=== PATIENT | female | born 1945 | race Caucasian/White ===

== ENCOUNTER 2023-07-12 06:20 | Inpatient (IN) | payer OTHER ==
[2023-07-12] VITALS (13 sets, daily range): BP systolic 112–137; BP diastolic 53–64; PULSE 56–93; RESP 12–18; TEMP 96.8–98.5; O2SAT 94–100
[~2023-07-12] VITALS: Ht 154.9 cm; Wt 112.0 kg
[~2023-07-12 06:20] MED LIST: AMLO1TAB23 PO; ASPI81CH59 PO; CHOLTAB12 PO; COEN100C37 PO; EZET10TA22 PO; FLUT1AER3 IN; FURO20TA3 PO; HYDR25TA5 PO; IPRA0.00 IN; ISOS1TAB28 PO; PRAV20TA3 PO; SERT-160 PO
[2023-07-12] MEDS ORDERED: ROCURONIUM 10MG/ML 10ML VIAL IV ONE (06:50)
[2023-07-12] MEDS ORDERED: SUCCINYLCHOLINE CHLORIDE 20 MG/ML 10ML VIAL IV ONE (06:50)
[2023-07-12] MEDS ORDERED: MIDAZOLAM HCL 2MG/2ML 2ml VIAL (1mg/ml) ONE (06:57)
[2023-07-12] MEDS ORDERED: fentaNYL CITRATE 100 MCG/2 ML VL ONE (06:57)
[2023-07-12] MEDS ORDERED: MEPERIDINE HCL (50 MG/ML) 1 ML VIAL ONE (06:57)
[2023-07-12] MEDS ORDERED: ONDANSETRON HCL 4 MG/2 ML VIAL ONE (06:58)
[2023-07-12] MEDS ORDERED: SODIUM CHLORIDE LOCK 20 ML ONE (06:58)
[2023-07-12] MEDS ORDERED: PROPOFOL 10 MG/ML 20 ML IV ONE ×3 (06:58→10:47)
[2023-07-12] MEDS ORDERED: NEOSTIGMINE 1 MG/ML INJ (10mg/10ML VIAL) ONE (06:58)
[2023-07-12] MEDS ORDERED: DexAMETHasone SOD PHOS 10MG/1ML VIAL INJ ONE (06:58)
[2023-07-12] MEDS ORDERED: GLYCOPYRROLATE 0.2 MG/ML 1ML VIAL ONE (06:58)
[2023-07-12] MEDS ORDERED: ceFAZolin 1GM/50ML 100 ML IV ONE (07:10)
[2023-07-12] MEDS ORDERED: LIDOCAINE W/ EPINEPHRINE 1% 20ML VIAL ONE (07:17)
[2023-07-12] MEDS ORDERED: METOCLOPRAMIDE HCL 5MG/ml INJ 2ml VIAL IV PRN (07:30)
[2023-07-12] MEDS ORDERED: MORPHINE SULFATE INJ 2 MG/ml SYRG IV PRN ×3 (07:30→08:00)
[2023-07-12] MEDS ORDERED: HYDROmorphone HCL 2 MG/ML VL/or syr IV PRN ×3 (07:30→13:15)
[2023-07-12] MEDS ORDERED: TRANEXAMIC ACID 20 ML ONE (07:45)
[2023-07-12] MEDS ORDERED: D5W/SOD CHLO 0.9% 1,000 ML IV SCH (08:00)
[2023-07-12] MEDS ORDERED: ACETAMINOPHEN 325 MG TAB PO PRN (08:00)
[2023-07-12] MEDS ORDERED: ONDANSETRON HCL 4 MG/2 ML VIAL IV PRN (08:00)
[2023-07-12] MEDS: ceFAZolin 1GM/50ML 50 ML IV SCH ×2 (08:00→16:00)
[2023-07-12] MEDS ORDERED: NITROGLYCERIN 0.4 MG SL TAB SL PRN (08:00)
[2023-07-12] MEDS ORDERED: SODIUM CHLORIDE LOCK 40 ML ONE (08:17)
[2023-07-12] MEDS: DOCUSATE SOD 100 MG CAP PO SCH ×2 (10:00→21:13)
[2023-07-12] MEDS ORDERED: ALBUTEROL SULF 2.5 MG/0.5ML(0.5%) NEB SOLN NEB ONE (13:15)
[2023-07-12] MEDS ORDERED: IPRATROPIUM BROM 0.5 MG/2.5ML INH SOL NEB ONE (13:15)
[2023-07-12] MEDS: HYDROmorphone HCL 2 MG/ML VL/or syr IV PRN ×4 (13:15→13:45)
[2023-07-12] MEDS ORDERED: CYCLOBENZAPRINE HCL 10 MG TAB PO SCH (14:00)
[2023-07-12] MEDS: D5W/SOD CHLO 0.9% 1,000 ML IV SCH (17:54)
[2023-07-12] MEDS: ALBUTEROL SULF 2.5 MG/0.5ML(0.5%) NEB SOLN NEB SCH (18:10)
[2023-07-12] MEDS: IPRATROPIUM BROM 0.5 MG/2.5ML INH SOL NEB SCH (18:10)
[2023-07-12] MEDS: CYCLOBENZAPRINE HCL 10 MG TAB PO SCH (21:13)
[2023-07-13] VITALS (12 sets, daily range): BP systolic 102–111; BP diastolic 31–53; PULSE 61–85; RESP 16–19; TEMP 98.1–98.8; O2SAT 96–100
[2023-07-13] MEDS: HYDROcodone-ACET 10/325MG TAB PO PRN ×2 (00:58→13:51)
[2023-07-13] MEDS: CYCLOBENZAPRINE HCL 10 MG TAB PO SCH ×3 (06:15→23:14)
[2023-07-13 06:17] LABS: Basophils # (auto) 0 10 ^3/uL (0-0.2); Eosinophils # (auto) 0 10 ^3/uL (0-0.8); INR 0.94 (0.9-1.15); Lymphocytes # (auto) 0.5 10 ^3/uL (0.4-5.4); Monocytes # (auto) 0.6 10 ^3/uL (0-1.3); Partial Thromboplastin Time 21.7 SEC (24.5-34.5); Prothrombin Time 9.9 sec (9.3-11.8)
[2023-07-13 06:21] LABS: Chloride 108 mmol/L (98-107); Potassium 4.6 mmol/L (3.5-5.1); Sodium 138 mmol/L (136-145)
[2023-07-13 06:22] LABS: Anion Gap 3 (5-15); Carbon Dioxide 27 mmol/L (20-30)
[2023-07-13 06:24] LABS: Hematocrit 35.2 % (36.0-46.0); Hemoglobin 11.9 g/dL (12.2-16.2); Lymphocytes % (auto) 5.8 % (10.0-50.0); Monocytes % (auto) 7.1 % (0.0-12.0); Neutrophils # (auto) 7.5 10 ^3/uL (1.6-8.6); Neutrophils % (auto) 87.1 % (37.0-80.0); Red Blood Cells 3.41 10^6/uL (4.0-5.20); White Blood Cell 8.6 10^3/uL (4.4-10.8)
[2023-07-13 06:27] LABS: BUN/Creatinine Ratio 13.5 (10.0-20.0); Blood Urea Nitrogen 13 mg/dL (9-23); Glucose 126 mg/dL (74-106)
[2023-07-13] MEDS: ALBUTEROL SULF 2.5 MG/0.5ML(0.5%) NEB SOLN NEB SCH ×3 (06:38→18:30)
[2023-07-13] MEDS: IPRATROPIUM BROM 0.5 MG/2.5ML INH SOL NEB SCH ×3 (06:38→18:30)
[2023-07-13] MEDS: D5W/SOD CHLO 0.9% 1,000 ML IV SCH (07:30)
[2023-07-13] MEDS: DOCUSATE SOD 100 MG CAP PO SCH ×2 (09:57→23:13)
[2023-07-13] MEDS: SERTRALINE HCL 50 MG TAB PO SCH (09:57)
[2023-07-13] MEDS: CHOLECALCIFEROL (VITD3) 1,000UNIT=25mCg TAB PO SCH (09:58)
[2023-07-13] MEDS: TRELEGY ELLIPTA IN SCH (10:00)
[2023-07-13] MEDS ORDERED: PATIENTS OWN MEDICATION (Sertraline Hcl 100 MG) PO SCH (10:00)
[2023-07-13] MEDS ORDERED: CHOLECALCIFEROL 50 MCG PO SCH (10:00)
[2023-07-13] MEDS ORDERED: PATIENTS OWN MEDICATION (Isosorbide Mononitrate (Isosorbide Mononitrate Er) 30 MG) PO SCH (10:00)
[2023-07-13] MEDS: Ezetimibe (Zetia) 10 MG TAB PO SCH (10:00)
[2023-07-13] MEDS ORDERED: PATIENTS OWN MEDICATION (Amlodipine Besylate 10 MG) PO SCH (10:00)
[2023-07-13] MEDS: ISOSORBIDE MONONITRATE ER 60 MG TAB PO SCH (10:00)
[2023-07-13] MEDS: amLODIPine BESYLATE 5 MG TAB PO SCH (10:00)
[2023-07-13] MEDS ORDERED: MORPHINE SULFATE INJ 2 MG/ml SYRG IV PRN (13:15)
[2023-07-13] MEDS ORDERED: TAMSULOSIN HYDROCHLORIDE 0.4 MG CAP PO ONE (14:15)
[2023-07-14] VITALS (13 sets, daily range): BP systolic 101–126; BP diastolic 51–58; PULSE 56–84; RESP 16–20; TEMP 98–98.7; O2SAT 82–99
[2023-07-14] MEDS: HYDROcodone-ACET 10/325MG TAB PO PRN ×2 (05:18→12:49)
[2023-07-14] MEDS: CYCLOBENZAPRINE HCL 10 MG TAB PO SCH ×3 (07:03→21:41)
[2023-07-14] MEDS: IPRATROPIUM BROM 0.5 MG/2.5ML INH SOL NEB SCH ×2 (07:32→14:42)
[2023-07-14] MEDS: ALBUTEROL SULF 2.5 MG/0.5ML(0.5%) NEB SOLN NEB SCH ×2 (07:33→14:42)
[2023-07-14] MEDS: TRELEGY ELLIPTA IN SCH (10:00)
[2023-07-14] MEDS: Ezetimibe (Zetia) 10 MG TAB PO SCH (10:00)
[2023-07-14] MEDS: SERTRALINE HCL 50 MG TAB PO SCH (10:12)
[2023-07-14] MEDS: DOCUSATE SOD 100 MG CAP PO SCH ×2 (10:13→21:41)
[2023-07-14] MEDS: amLODIPine BESYLATE 5 MG TAB PO SCH (10:13)
[2023-07-14] MEDS: CHOLECALCIFEROL (VITD3) 1,000UNIT=25mCg TAB PO SCH (10:13)
[2023-07-14] MEDS: ISOSORBIDE MONONITRATE ER 60 MG TAB PO SCH (10:14)
[2023-07-14] MEDS ORDERED: HYDR-4798 PO (16:36)
[2023-07-14] MEDS ORDERED: IPRA0.00 IN (16:37)
[2023-07-15] MEDS: HYDROcodone-ACET 10/325MG TAB PO PRN (04:09)
[2023-07-15 05:00] VITALS: BP 136/59; PULSE 88; RESP 19; TEMP 98.4; O2SAT 94
[2023-07-15] MEDS: CYCLOBENZAPRINE HCL 10 MG TAB PO SCH (05:32)
[2023-07-15 07:30] VITALS: PULSE 97
[2023-07-15 09:00] VITALS: BP 128/54; PULSE 94; RESP 16; TEMP 97.3; O2SAT 94
[2023-07-15] MEDS: DOCUSATE SOD 100 MG CAP PO SCH (10:04)
[2023-07-15] MEDS: CHOLECALCIFEROL (VITD3) 1,000UNIT=25mCg TAB PO SCH (10:04)
[2023-07-15] MEDS: amLODIPine BESYLATE 5 MG TAB PO SCH (10:04)
[2023-07-15] MEDS: SERTRALINE HCL 50 MG TAB PO SCH (10:04)
[2023-07-15] MEDS: ISOSORBIDE MONONITRATE ER 60 MG TAB PO SCH (10:04)
== END 2023-07-15 12:30 | disposition home health service (06) | DRG 453 ==
LOC: SUR 06:20 → TELE 07:57 → TELE-EAST 17:38
PROVIDERS: ADMIT Orthopaedic Surgery; ATTEND Orthopaedic Surgery
PROC: 0SG00K1 Fusion of Lumbar Vertebral Joint with Nonautologous Tissue Substitute, Posterior Approach, Posterior Column, Open Approach (ICD-10-PCS; 2023-07-12)
PROC: 01NB0ZZ Release Lumbar Nerve, Open Approach (ICD-10-PCS; 2023-07-12)
PROC: 00NY0ZZ Release Lumbar Spinal Cord, Open Approach (ICD-10-PCS; 2023-07-12)
PROC: 01NR0ZZ Release Sacral Nerve, Open Approach (ICD-10-PCS; 2023-07-12)
PROC: 4A11X4G Monitoring of Peripheral Nervous Electrical Activity, Intraoperative, External Approach (ICD-10-PCS; 2023-07-12)
PROC: 0SG00AJ Fusion of Lumbar Vertebral Joint with Interbody Fusion Device, Posterior Approach, Anterior Column, Open Approach (ICD-10-PCS; principal; 2023-07-12 07:49)
DX: M48.062 Spinal stenosis, lumbar region with neurogenic claudication (principal); J96.21 Acute and chronic respiratory failure with hypoxia; Z68.42 Body mass index [BMI] 45.0-49.9, adult; M54.16 Radiculopathy, lumbar region; I10 Essential (primary) hypertension; E78.00 Pure hypercholesterolemia, unspecified; F32.9 Major depressive disorder, single episode, unspecified; E55.9 Vitamin D deficiency, unspecified; E66.01 Morbid (severe) obesity due to excess calories; J44.9 Chronic obstructive pulmonary disease, unspecified; Z98.84 Bariatric surgery status; Z91.041 Radiographic dye allergy status
CPT/HCPCS: 36415; 80048; 85025; 85610; 85730; 86850; 86900; 86901; 94640; 97110; 97116; 97163; 97530; G0378; J0330; J0690; J1100; J2250; J2405; J2704; J7042

== ENCOUNTER 2023-07-17 12:09 | Inpatient (IN) | payer OTHER ==
[~2023-07-17] VITALS: Ht 154.9 cm; Wt 91.0 kg
[~2023-07-17 12:09] MED LIST changes: +HYDR-4798 PO
[2023-07-17] MEDS ORDERED: SODIUM CHLORIDE 0.9% 1,000 ML IV ONE (12:30)
[2023-07-17 13:00] VITALS: PULSE 88; RESP 16; O2SAT 96
[2023-07-17 13:31] LABS: Basophils # (auto) 0 10 ^3/uL (0-0.2); Eosinophils # (auto) 0.1 10 ^3/uL (0-0.8); Hemoglobin 13.3 g/dL (12.2-16.2); Lymphocytes # (auto) 1.1 10 ^3/uL (0.4-5.4); Lymphocytes % (auto) 11.2 % (10.0-50.0); Monocytes # (auto) 0.9 10 ^3/uL (0-1.3); Nucleated Red Blood Cells % 0.2 %
[2023-07-17 13:33] LABS: Basophils % (auto) 0.4 % (0.0-2.0); Eosinophils % (auto) 0.8 % (0.0-7.0); Hematocrit 38.6 % (36.0-46.0); Mean Corpuscular Hemoglobin 34.9 pg (28.0-32.0); Mean Corpuscular Hgb Conc. 34.5 g/dL (32.0-36.0); Mean Corpuscular Volume 101.1 fL (80.0-100.0); Monocytes % (auto) 9.3 % (0.0-12.0); Neutrophils # (auto) 7.7 10 ^3/uL (1.6-8.6); Neutrophils % (auto) 78.3 % (37.0-80.0); Red Blood Cells 3.82 10^6/uL (4.0-5.20); Red Cell Distribution Width 14.6 % (11.8-14.3); White Blood Cell 9.9 10^3/uL (4.4-10.8)
[2023-07-17 13:47] LABS: Alanine Aminotransferase 26 U/L (7-40); Albumin 3.5 g/dL (3.2-4.8); Alkaline Phosphatase 94 U/L (46-116); Anion Gap 10 (5-15); Aspartate Aminotransferase 32 U/L (13-40); Blood Urea Nitrogen 13 mg/dL (9-23); Calcium 8.9 mg/dL (8.7-10.4); Carbon Dioxide 24 mmol/L (20-30); Chloride 101 mmol/L (98-107); Glucose 100 mg/dL (74-106); INR 1.04 (0.9-1.15); Partial Thromboplastin Time 24.8 SEC (24.5-34.5); Potassium 3.3 mmol/L (3.5-5.1); Prothrombin Time 10.9 sec (9.3-11.8); Sodium 135 mmol/L (136-145)
[2023-07-17 13:48] LABS: Bilirubin, Total 1.7 mg/dL (0.2-1.0); Total Protein 5.8 g/dL (5.7-8.2)
[2023-07-17 13:55] LABS: Urine Bacteria NONE SEEN /hpf (None Seen); Urine Blood Negative /uL (Negative); Urine Clarity Clear (Clear); Urine Color Yellow (Yellow); Urine Hyaline Cast FEW /lpf (0 - 2); Urine Mucus FEW (None Seen); Urine Protein, UAD TRACE (Negative); Urine Specific Gravity 1.013 (1.001-1.035); Urine WBC 1 /hpf (0 - 5); Urine pH 6.5 (5.0-8.0)
[2023-07-17 14:51] LABS: COVID19 ANTIGEN SOFIA FIA NEGATIVE (NEGATIVE)
[2023-07-17] MEDS ORDERED: IOHEXOL 350 MG/ML 100ML IJ ONE (16:29)
[2023-07-17] MEDS ORDERED: NITROGLYCERIN 0.4 MG SL TAB SL PRN (19:45)
[2023-07-17] MEDS ORDERED: DOCUSATE SOD 100 MG CAP PO PRN (19:45)
[2023-07-17] MEDS ORDERED: ONDANSETRON HCL 4 MG/2 ML VIAL IV PRN (19:45)
[2023-07-17] MEDS ORDERED: MORPHINE SULFATE INJ 2 MG/ml SYRG IV PRN (19:45)
[2023-07-17] MEDS ORDERED: HYDROcodone-ACET 5/325MG TAB PO PRN (19:45)
[2023-07-17] MEDS ORDERED: ACETAMINOPHEN 325 MG TAB PO PRN (19:45)
[2023-07-17 19:50] VITALS: PULSE 93; RESP 16; O2SAT 94
[2023-07-18 06:22] LABS: Chloride 100 mmol/L (98-107); Potassium 3.3 mmol/L (3.5-5.1); Sodium 136 mmol/L (136-145)
[2023-07-18 06:23] LABS: Anion Gap 7 (5-15); Calcium 8.9 mg/dL (8.7-10.4); Carbon Dioxide 29 mmol/L (20-30)
[2023-07-18 06:28] LABS: Glucose 98 mg/dL (74-106)
[2023-07-18 06:29] LABS: BUN/Creatinine Ratio 25.3 (10.0-20.0); Blood Urea Nitrogen 20 mg/dL (9-23)
[2023-07-18 06:42] LABS: Basophils # (auto) 0 10 ^3/uL (0-0.2); Basophils % (auto) 0.3 % (0.0-2.0); Eosinophils # (auto) 0.1 10 ^3/uL (0-0.8); Eosinophils % (auto) 2.1 % (0.0-7.0); Hematocrit 38.4 % (36.0-46.0); Hemoglobin 12.6 g/dL (12.2-16.2); Lymphocytes # (auto) 1.3 10 ^3/uL (0.4-5.4); Lymphocytes % (auto) 18.9 % (10.0-50.0); Mean Corpuscular Hemoglobin 34.9 pg (28.0-32.0); Mean Corpuscular Hgb Conc. 32.8 g/dL (32.0-36.0); Mean Corpuscular Volume 106.3 fL (80.0-100.0); Monocytes # (auto) 0.8 10 ^3/uL (0-1.3); Monocytes % (auto) 11.3 % (0.0-12.0); Neutrophils # (auto) 4.7 10 ^3/uL (1.6-8.6); Neutrophils % (auto) 67.4 % (37.0-80.0); Nucleated Red Blood Cells % 0.1 %; Red Blood Cells 3.61 10^6/uL (4.0-5.20); Red Cell Distribution Width 15.3 % (11.8-14.3)
[2023-07-18 07:40] VITALS: PULSE 68; RESP 18; O2SAT 98
[2023-07-18] MEDS ORDERED: ENOXAPARIN SOD 40 MG/0.4 ML SYRINGE SC SCH (10:00)
[2023-07-18] MEDS ORDERED: POTASSIUM CHL 20 Meq TABLET PO ONE (12:00)
[2023-07-18 13:00] VITALS: BP 132/50; PULSE 73; RESP 18; TEMP 98; O2SAT 90
[2023-07-18] MEDS ORDERED: IPRATROPIUM BROM 0.5 MG/2.5ML INH SOL NEB PRN (13:15)
[2023-07-18] MEDS ORDERED: ALBUTEROL SULF 2.5 MG/0.5ML(0.5%) NEB SOLN NEB PRN (13:15)
[2023-07-18 17:07] VITALS: BP 123/59; PULSE 71; RESP 19; TEMP 97.6; O2SAT 98
[2023-07-18] MEDS ORDERED: ALBUTEROL SULF HFA 90MCG INH 200DOSE IN SCH (22:00)
[2023-07-19] MEDS ORDERED: CHOLECALCIFEROL (VITD3) 1,000UNIT=25mCg TAB PO SCH (10:00)
[2023-07-19] MEDS ORDERED: PRAVASTATIN SODIUM 20 MG TAB PO SCH (10:00)
[2023-07-19] MEDS ORDERED: SERTRALINE HCL 50 MG TAB PO SCH (10:00)
[2023-07-19] MEDS ORDERED: ASPirin-EC 81 mg tab PO SCH (10:00)
[2023-07-19] MEDS ORDERED: ISOSORBIDE MONONITRATE ER 60 MG TAB PO SCH (10:00)
== END 2023-07-18 18:50 | DRG 552 ==
LOC: EDBD 12:09 → ER 12:09 → TELE 19:38 → TELE-WESTW 07-18 09:01
PROVIDERS: ADMIT Nurse Practitioner Family; ATTEND Nurse Practitioner Family
DX: M47.896 Other spondylosis, lumbar region (principal); M47.892 Other spondylosis, cervical region; R53.1 Weakness; R62.7 Adult failure to thrive; I11.0 Hypertensive heart disease with heart failure; I50.9 Heart failure, unspecified; Z20.822 Contact with and (suspected) exposure to COVID-19; J44.9 Chronic obstructive pulmonary disease, unspecified; R32 Unspecified urinary incontinence; F32.A Depression, unspecified; Z88.5 Allergy status to narcotic agent; Z88.8 Allergy status to other drugs, medicaments and biological substances; Z91.041 Radiographic dye allergy status; Z79.899 Other long term (current) drug therapy; Z79.82 Long term (current) use of aspirin
CPT/HCPCS: 36415; 71045; 72100; 76000; 78582; 80048; 80053; 81001; 84484; 85025; 85379; 85610; 85730; 87081; 87426; 93005; 93306; 96372; 97110; 97116; 97163; 97530; G0378

== ENCOUNTER → 2024-07-20 | Outpatient (CLI) | payer OTHER | END | disposition home or self-care (01) | LOC: XYW 08:06 | PROVIDERS: ATTEND Orthopaedic Surgery Adult Reconstructive Orthopaedic Surgery | DX: T84.84XA Pain due to internal orthopedic prosthetic devices, implants and grafts, initial encounter (principal); X58.XXXA Exposure to other specified factors, initial encounter; Y93.89 Activity, other specified; Y92.89 Other specified places as the place of occurrence of the external cause; Y99.8 Other external cause status | CPT/HCPCS: 78315; A9503 ==